=== PATIENT | female | born 1945 | race African-American/Black ===

== ENCOUNTER 2019-09-19 14:12 | Emergency (ER) | payer OTHER ==
[~2019-09-19] VITALS: Ht 157.5 cm; Wt 74.8 kg
[2019-09-19] MEDS ORDERED: LAMICTAL200 MG (14:53)
[2019-09-19] MEDS ORDERED: INDERAL LA80 MG (14:53)
[2019-09-19] MEDS ORDERED: GLUMETZA500 MG (14:55)
[2019-09-19] MEDS ORDERED: LIPO-FLAVONOID1 EACH PO (20:52)
[2019-09-19] MEDS ORDERED: MECLIZINE HCL25 MG PO (20:52)
== END 2019-09-19 21:06 | disposition home or self-care (01) ==
LOC: ER 14:12
DX: R42 Dizziness and giddiness (principal); R53.1 Weakness

== ENCOUNTER 2020-02-02 08:57 | Day surgery (SDC) | payer OTHER ==
[~2020-02-02 08:57] MED LIST: GLUMETZA500 MG; INDERAL LA80 MG; LAMICTAL200 MG; LIPO-FLAVONOID1 EACH PO; MECLIZINE HCL25 MG PO
== END 2020-02-02 12:10 | disposition home or self-care (01) ==
LOC: CIR.AMB 08:57
PROVIDERS: ATTEND Surgery
DX: K63.5 Polyp of colon (principal); Z20.828 Contact with and (suspected) exposure to other viral communicable diseases